=== PATIENT | male | born 1990 | race African-American/Black ===

== ENCOUNTER 2016-11-16 17:19 | Observation (INO) ==
[2016-11-16] MEDS ORDERED: LACTATED RINGERS 1,000 ML IV STA (17:33)
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
[2016-11-16] MEDS ORDERED: ONDANSETRON 4 MG/2 ML VIAL ONE (18:03)
[2016-11-16] MEDS ORDERED: HYDROmorphone 2 MG/1 ML VIAL IV STA ×2 (18:03→18:27)
[2016-11-16] MEDS ORDERED: HYDROmorphone 2 MG/1 ML VIAL ONE (18:03)
[2016-11-16] MEDS ORDERED: ONDANSETRON 4 MG/2 ML VIAL IV STA (18:03)
[2016-11-16] MEDS ORDERED: LACTATED RINGERS 1,000 ML IV ONE (18:04)
--- NOTE | 2016-11-16 18:10 | EKG Report ---
Stationary ECG Study [facility] ER Test Date: 11/16/2016 6:09:28 PM Pat Name: AKIRA SCOTT Department: Room: Gender: M Rn Surgery: OSKAR : 1990 Requested by: Riki Leonard Order Number: [id number] Letty MD: MENDOZA OSBORN Intervals [place] Rate: 103 P: 78 OH: 139 QRS: 85 QRSD: 91 T: 70 QT: 315 QTc: 374 Interpretive Statements SINUS TACHYCARDIA POSSIBLE BIATRIAL ABNORMALITY MINIMAL VOLTAGE CRITERIA FOR LVH, CONSIDER NORMAL VARIANT NONSPECIFIC T-WAVE ABNORMALITY ABNORMAL RHYTHM ECG Electronically Signed On 11-17-16 10:46:56 LANGUAGE TEACHER by MENDOZA OSBORN [email or web address]
[2016-11-16 18:30] LABS: Basophils # 0.1 10*3/uL (0.0-0.2); Basophils % 0.3 % (0.0-0.8); Eosinophils # 0.1 10*3/uL (0.0-0.87); Eosinophils % 0.8 % (0.00-10.9); Hematocrit 37.7 VOL% (42.0-52.0); Hemoglobin 12.9 GM/DL (14.0-18.0); Immature Granulocytes % 0.6 %; Lymphocytes % 18.1 % (21.2-54.2); Mean Corpuscular HGB Conc 34.2 GM/DL (32-36); Mean Corpuscular Hemoglobin 29 PG (27-34); Mean Platelet Volume 10.2 FL (9.6-12.0); Monocytes % 6.3 % (1.7-12.7); Neutrophils % 73.9 % (38.7-73.9); Platelet Count 215 10*3/uL (130-400); Red Blood Count 4.49 10*6/uL (3.8-5.5); Red Cell Distribution Width 13.2 % (9.3-17.3); White Blood Count 16.3 10*3/uL (4.5-13.71)
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
[2016-11-16 18:48] LABS: INR 1.2; PT Patient Result 12.5 SECS; Partial Thromboplastin Time 26.9 SECS (0-40)
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
[2016-11-16 18:57] LABS: Alanine Aminotransferase 17 U/L (16-61); Albumin 3.6 G/DL (3.4-5.0); Alkaline Phosphatase 49 U/L (45-117); Amylase 91 U/L (25-115); Aspartate Amino Transferase 24 U/L (0-37); Blood Urea Nitrogen 14 MG/DL (7-18); Calcium 8.4 MG/DL (8.5-10.1); Glucose 85 MG/DL (74-106); Osmolality,Calculated 285.8 MOS/KG (273-304); Potassium 3.9 MMOL/L (3.5-5.1); Sodium 144 MMOL/L (136-145); Total Protein 6.1 G/DL (6.4-8.3)
[2016-11-16 18:58] LABS: Troponin I Only < 0.015 NG/ML (0.00-0.045)
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
[2016-11-16] MEDS: LACTATED RINGERS 1,000 ML IV SCH (22:20)
[2016-11-16] MEDS ORDERED: ACETAMINOPHEN 325 MG TABLET PO PRN (22:27)
[2016-11-16] MEDS ORDERED: ONDANSETRON 4 MG/2 ML VIAL IV PRN (22:27)
[2016-11-16] MEDS: KETOROLAC 15 MG/1 ML VIAL IV SCH (23:43)
[2016-11-17] MEDS: LACTATED RINGERS 1,000 ML IV SCH ×2 (06:35→14:39)
[2016-11-17] MEDS: KETOROLAC 15 MG/1 ML VIAL IV SCH ×2 (06:42→10:38)
[2016-11-17] MEDS ORDERED: PANTOPRAZOLE 40 MG TABLET PO SCH (09:00)
[2016-11-17] MEDS: CARISOPRODOL 350 MG TABLET PO SCH ×2 (10:38→14:36)
[2016-11-17 13:10] VITALS: BP 135/69
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
[2016-11-17] MEDS ORDERED: ENOXAPARIN 40 MG/0.4 ML SYRINGE SUBCUT SCH (14:36)
== END 2016-11-17 15:45 | disposition home or self-care (01) ==
LOC: EDUNIT# → EDBD → N.ED 17:19 → N.EDINP 17:19 → N.3E 21:09
PROVIDERS: ADMIT Surgery; ATTEND Surgery